=== PATIENT | male | born 1985 | race Caucasian/White ===

== ENCOUNTER 2020-02-25 19:39 | Emergency (ER) | payer BC, SELFPAY ==
[2020-02-25 19:40] VITALS: BP 144/90; PULSE 145; RESP 16; TEMP 37.2; O2SAT 98; BMI 23.7
[2020-02-25 19:52] VITALS: BMI 23.7
--- NOTE | 2020-02-25 20:08 | [facility].EDANX ---
ED Disposition Clinical Impression: Heroin use disorder, mild, in early remission Disposition: Home, Self-Care Condition on Discharge: Good Instructions: DI for Drug or Alcohol Withdrawal Additional Instructions: please seek help and call pcp for follow up Prescriptions: clonazePAM [Klonopin 0.5mg tablet] 0.5 mg PO TID #5 tab Prescription Printed Referrals: Provider,Referral, [Primary Care Provider] - - Critical Care Critical Care Time: No Attestation: On 02/25/20, the high probability of a clinically significant, sudden or life threatening deterioration of the following system(s) required my full and direct attention, intervention and personal management. The time I documented below is in addition to time spent performing reported procedures but includes the following listed in this critical care notation. Medical Decision Making - Medical Records Medical records reviewed: Yes: I reviewed the patient's medical records. - Arthur Inquiry Pt receiving controlled substance: No Vital Signs: 02/25/20 19:40 Temperature 99.0 F Temperature Source Oral Pulse Rate [Left Radial] 145 H Respiratory Rate 16 Blood Pressure [Right Arm] 144/90 H Blood Pressure Mean [Right Arm] 108 Blood Pressure Source [Right Arm] Automatic Cuff Blood Pressure Position [Right Arm] Sitting 02 Sat by Pulse Oximetry 98 Oxygen Delivery Method Room Air - Lab Data Lab results reviewed: Yes: I reviewed the patient's lab results. Lab Results 02/25/20 20:00: WBC 7.9, RBC 5.27, Hgb 15.8, Hct 47.2, MCV 89.6, MCH 29.9, MCHC 33.4, RDW 13.1, Plt Count 499 H, MPV 7.6, Neut % (Auto) 74.0, Lymph % (Auto) 18.9, Benson % (Auto) 3.9, Eos % (Auto) 1.6, Baso % (Auto) 1.6, Neut # (Auto) 5.8, Lymph # (Auto) 1.5, Benson # (Auto) 0.3, Eos # (Auto) 0.1, Baso # (Auto) 0.1 02/25/20 20:00: Sodium 138, Potassium 4.6, Chloride 102, Carbon Dioxide 28, Anion Gap 12.6, BUN 8 L, Creatinine 0.80, Estimated Creat Clear 145, Estimated GFR 112, Est GFR ( Amer) 136, Glucose 118 H, Calcium 9.8, Total Bilirubin 0.4, AST 37, ALT 35, Alkaline Phosphatase 73, Troponin I < 0.01, Total Protein 7.9, Albumin 4.4, Globulin 3.5 H, Albumin/Globulin Ratio 1.3, Salicylates < 1.0 L, Acetaminophen < 10 L 02/25/20 20:00: Plasma/Serum Alcohol < 10 02/25/20 20:55: Urine Color Yellow, Urine Appearance Clear, Urine pH 7.5, Ur Specific [place] 1.015, Urine Protein Negative, Urine Glucose (UA) Negative, Urine Ketones Negative, Urine Blood Negative, Urine Nitrate Negative, Urine Bilirubin Negative, Urine Urobilinogen 0.2, Ur Leukocyte Esterase Negative, Urine WBC Occasional, Ur Squamous Epith Cells Occasional, Urine Bacteria Trace 02/25/20 20:55: Urine Opiates Screen Negative, Urine Methadone Screen Negative, Ur Barbituates Screen Negative, Ur Phencyclidine Scrn Negative, Ur Amphetamines Screen Negative, U Benzodiazepines Scrn Negative, Urine Cocaine Screen Negative, U Marijuana (THC) Screen Positive H Result diagrams: 02/25/20 20:00 02/25/20 20:00 Orders (Tests/Meds): ED MEDICATIONS Generic Name Dose Route Start Last Admin Trade Name Freq PRN Reason Stop Dose Admin Sodium Chloride 1,000 mls @ 999 mls/hr 02/25/20 21:01 02/25/20 21:03 Sod Chlor 0.9% 1000ml Bag IV 02/25/20 22:01 999 mls/hr .[id number] JUAN ANTONIO Administration ORDERS Category Date Time Status Troponin I Q3H Lab 02/25/20 23:00 Ordered Troponin I Q3H Lab 02/26/20 02:00 Ordered Anxiety HPI - General Chief Complaint: Anxiety Stated Complaint: withdrawals, drugs IV use Time Seen by Provider: 02/25/20 20:05 Mode of Arrival: Ambulatory Source of Information: Patient, Medical Record Limitations: No Limitations Description of Symptoms (Recalled from ER Triage Doc. by RN): pt c/o heroine withdrawal. pt stated he last used yesterday at 2pm via IV injection. pt now states he is restless and anxious. - History of Present Illness HPI narrative: pt with feeling of with drawing from heroin use - last use was iv y
[2020-02-25 20:09] LABS: Basophils # 0.1 K/mm3 (0-0.2); Basophils % 1.6 % (0.1-2.0); Eosinophils # 0.1 K/mm3 (0.0-0.4); Eosinophils % 1.6 % (0.1-12.0); Hematocrit 47.2 % (42.0-52.0); Hemoglobin 15.8 g/dL (14.1-18.0); Lymphocytes # 1.5 K/mm3 (0.7-4.5); Lymphocytes % 18.9 % (10-50); Mean Corpuscular HGB Conc 33.4 g/dL (31.8-35.4); Mean Corpuscular Hemoglobin 29.9 pg (27.0-31.2); Mean Corpuscular Volume 89.6 fl (80-94); Mean Platelet Volume 7.6 fl (7.4-10.4); Monocytes # 0.3 K/mm3 (0.1-1.0); Monocytes % 3.9 % (1.7-9.3); Neutrophils # 5.8 K/mm3 (1.8-7.8); Platelet Count 499 K/mm3 (142-424); Red Blood Count 5.27 M/mm3 (4.60-6.20); Red Cell Distribution Width 13.1 % (11.5-17.5); White Blood Count 7.9 K/mm3 (4.8-10.8)
[2020-02-25 20:12] LABS: Chloride 102 mmol/L (98-107)
[2020-02-25 20:13] LABS: Potassium 4.6 mmoL/L (3.5-5.1); Sodium 138 mmol/L (136-145)
[2020-02-25 20:15] LABS: Alanine Aminotransferase 35 U/L (12-78); Anion Gap 12.6 mEq/L (5-15); Aspartate Amino Transferase 37 U/L (17-59); Blood Urea Nitrogen 8 mg/dl (9-20); Carbon Dioxide 28 mmol/L (22.0-30.0); Creatinine Clearance Estimated 145 mL/min (50-200); Estimated Glomerular Filt Rate 112 ml/min (>60); GFR (African American) 136 ML/MIN (>60)
[2020-02-25 20:16] LABS: Albumin Level 4.4 g/dl (3.5-5.0); Albumin/Globulin Ratio 1.3 (1.1-1.8); Alkaline Phosphatase 73 U/L (38-126); Bilirubin,Total 0.4 mg/dl (0.2-1.3); Calcium 9.8 mg/dl (8.4-10.2); Globulin 3.5 g/dL (1.3-3.2); Glucose 118 mg/dl (74-100); Total Protein,Serum 7.9 g/dl (6.3-8.2)
[2020-02-25 20:19] LABS: Acetaminophen < 10 ug/ml (10-30); Ethyl Alcohol < 10 mg/dl (0-10); Salicylate < 1.0 mg/dL (2.0-20.0)
[2020-02-25 20:28] LABS: Troponin I < 0.01 ng/ml (0.00-0.034)
[2020-02-25 20:40] VITALS: BP 137/86; PULSE 115; RESP 16; O2SAT 97
[2020-02-25 21:01] LABS: Microscopic, Urine URINE MICROSCOPIC (MICROSCOPIC)
[2020-02-25 21:02] LABS: Appearance,Urine CLEAR (Clear); Bilirubin,Urine Negative (Negative); Blood, Urine Negative (Negative); Color,Urine YELLOW (Yellow); Glucose,Urine (UA) Negative (Negative); Ketones,Urine Negative (Negative); Leukocyte Esterase,Urine Negative (Negative); Nitrate,Urine Negative (Negative); PH,Urine 7.5 (5.0-8.5); Protein,Urine Negative (Negative); Specific Gravity, Urine 1.015 (1.005-1.030); Urobilinogen,Urine 0.2 EU/dl (0.2)
[2020-02-25 21:05] LABS: Bacteria,Urine Trace /lpf; Squamous Epithelial Cell,Urine Occasional #/hpf (0-5); WBC,Urine Occasional #/hpf (0-3)
[2020-02-25 21:14] LABS: Barbiturates Screen,Urine Negative ng/ml (<200); Benzodiazepines Screen,Urine Negative ng/ml (<200)
[2020-02-25 21:15] LABS: Amphetamine/Metha Screen,Urine Negative ng/ml (<1000); Cannabinoid Screen,Urine Positive ng/ml (<50)
[2020-02-25 21:16] LABS: Cocaine Screen,Urine Negative ng/ml (<300)
[2020-02-25 21:17] LABS: Methadone Screen,Urine Negative ng/ml (<300); Opiate Screen,Urine Negative ng/ml (<300)
[2020-02-25 21:18] LABS: Phencyclidine Screen,Urine Negative ng/ml (<25)
[2020-02-25 21:56] VITALS: BP 126/78; PULSE 105; RESP 16; TEMP 37.2; O2SAT 99
== END 2020-02-25 21:58 | disposition home or self-care (01) ==
PROVIDERS: Emergency Medicine; Emergency Provider Emergency Medicine
DX: F11.11 Opioid abuse, in remission (principal); F12.10 Cannabis abuse, uncomplicated; F41.9 Anxiety disorder, unspecified; F17.210 Nicotine dependence, cigarettes, uncomplicated
CPT/HCPCS: 80053; 80305; 80329; 81001; 84484; 85025; 96365; 96375; 99283

== ENCOUNTER → 2020-03-02 15:09 | Outpatient (CLI) | payer BC, SELFPAY ==
[2020-03-02 15:32] LABS: Chloride 102 mmol/L (98-107); Potassium 5.5 mmoL/L (3.5-5.1); Sodium 135 mmol/L (136-145)
[2020-03-02 15:35] LABS: Alanine Aminotransferase 73 U/L (12-78); Albumin Level 3.8 g/dl (3.5-5.0); Albumin/Globulin Ratio 1.3 (1.1-1.8); Alkaline Phosphatase 92 U/L (38-126); Anion Gap 8.5 mEq/L (5-15); Aspartate Amino Transferase 71 U/L (17-59); Bilirubin,Total 0.5 mg/dl (0.2-1.3); Blood Urea Nitrogen 19 mg/dl (9-20); Carbon Dioxide 30 mmol/L (22.0-30.0); Cholesterol 165 mg/dl (140-200); Estimated Glomerular Filt Rate 112 ml/min (>60); GFR (African American) 136 ML/MIN (>60); Total Protein,Serum 6.8 g/dl (6.3-8.2); Triglycerides 115 mg/dl (30-150); VLDL Cholesterol 23 mg/dL (0-40)
[2020-03-02 15:36] LABS: Calcium 9.2 mg/dl (8.4-10.2); Chol/HDL Ratio 2.1 (1-3.5); Glucose 66 mg/dl (74-100); HDL Cholesterol 77 mg/dl (40-60)
[2020-03-02 15:44] LABS: Basophils # 0.1 K/mm3 (0-0.2); Basophils % 1.3 % (0.1-2.0); Eosinophils # 0.3 K/mm3 (0.0-0.4); Eosinophils % 5.3 % (0.1-12.0); Hematocrit 46.8 % (42.0-52.0); Hemoglobin 14.6 g/dL (14.1-18.0); Lymphocytes # 1.9 K/mm3 (0.7-4.5); Lymphocytes % 30.1 % (10-50); Mean Corpuscular HGB Conc 31.1 g/dL (31.8-35.4); Mean Corpuscular Hemoglobin 29.5 pg (27.0-31.2); Mean Corpuscular Volume 94.9 fl (80-94); Mean Platelet Volume 8.6 fl (7.4-10.4); Monocytes # 0.4 K/mm3 (0.1-1.0); Monocytes % 5.9 % (1.7-9.3); Neutrophils # 3.7 K/mm3 (1.8-7.8); Neutrophils % 57.3 % (37.0-80.0); Platelet Count 393 K/mm3 (142-424); Red Blood Count 4.94 M/mm3 (4.60-6.20); Red Cell Distribution Width 13.3 % (11.5-17.5); White Blood Count 6.4 K/mm3 (4.8-10.8)
[2020-03-02 15:46] LABS: Direct LDL Cholesterol 91.83 mg/dL (100-129)
[2020-03-04 04:07] LABS: Hep A Ab, IgM Negative (Negative); Hepatitis B Core Antibody IgM Negative (Negative); Hepatitis B Surface Antigen Negative (Negative)
[2020-03-04 11:37] LABS: HIV Screen 4th Generation wRfx Non Reactive (Non Reactive); Hepatitis C Antibody >11.0 s/co ratio (0.0-0.9); Vitamin D 25 Hydroxy 19.4 ng/mL (30.0-100.0)
== END ==
PROVIDERS: Visit Provider Physician Assistant
DX: F11.11 Opioid abuse, in remission (principal); E55.9 Vitamin D deficiency, unspecified
CPT/HCPCS: 80053; 80061; 80074; 82652; 84436; 84443; 85025; 86703; G0432

== ENCOUNTER → 2020-03-10 09:28 | Outpatient (CLI) | payer BC, SELFPAY ==
[2020-03-14 15:08] LABS: HCV Genotype Charge YES; Hepatitis C Genotype 3 (.)
== END ==
PROVIDERS: Visit Provider Physician Assistant
DX: R76.8 Other specified abnormal immunological findings in serum (principal)
CPT/HCPCS: 36415; 87522; 87902